=== PATIENT | male | born 1995 | race Hispanic/Latino ===

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

== ENCOUNTER 2018-05-22 15:56 | Observation (INO) | payer MEDICAID ==
[2018-05-22] MEDS ORDERED: Albuterol-Ipratrop 3 mg / 0.5 (3 ml) UD IH STA (16:46)
[2018-05-22] MEDS ORDERED: Sodium Chloride 0.9% 1,000 ML IV STA (16:46)
[2018-05-22] MEDS ORDERED: Iohexol 240 (50 ml) PO ONE (16:47)
--- NOTE | 2018-05-22 16:50 | ED PDOC ---
HPI: General Adult Time Seen by Provider: 05/22/18 16:22 Chief Complaint (Nursing): Respiratory Distress Chief Complaint (Provider): cold symptoms, abd pain History Per: Patient, Family (mother) History/Exam Limitations: no limitations Onset/Duration Of Symptoms: Days (10\) Current Symptoms Are (Timing): Still Present Additional Complaint(s): 22 y/o male brought in by mother for evaluation. Patient states he has been with cough, congestion and throat pain x 10 days. Associated subjective fevers. Patient thinks symptoms may have triggered his Crohn's; reports worsening bloody diarrhea, abdominal pain, and back pain with bowel movements. Denies headache, nausea/vomiting, palpitations, urinary symptoms, recent travel, sick contacts. Past Medical History Reviewed: Historical Data, Nursing Documentation, Vital Signs Vital Signs: Last Vital Signs Temp 98.6 F 05/22/18 16:08 Pulse 112 H 05/22/18 16:08 Resp 17 05/22/18 16:16 BP 106/58 L 05/22/18 16:08 Pulse Ox 97 05/22/18 16:16 - Medical History PMH: Asthma, Crohn's Disease Denies: Chronic Kidney Disease Other PMH: Congenital Heart disease - Surgical History Other surgeries: valvuloplastyx2 - Family History Family History: States: No Known Family Hx - Living Arrangements Living Arrangements: With Family - Immunization History Hx Tetanus Toxoid Vaccination: Yes Hx Influenza Vaccination: Yes Hx Pneumococcal Vaccination: Yes - Home Medications Home Medications: Ambulatory Orders Medication Instructions Recorded Ciprofloxacin HCl [Cipro] 500 mg PO BID #14 tab 01/03/17 Famotidine [Pepcid] 40 mg PO DAILY #14 tab 01/03/17 Lidocaine 5% [Lidoderm] 1 ea TD DAILY #30 patch 01/03/17 Vancomycin [Vancocin (Oral/Rectal 250 mg PO Q6 #28 tab 01/03/17 USE)] metroNIDAZOLE [Flagyl] 500 mg PO Q8 #21 tab 01/03/17 oxyCODONE/Acetaminophen [Percocet 1 tab PO Q4 PRN #10 tab 01/03/17 5/325 mg Tab] predniSONE [predniSONE Tab] 10 mg PO BID #14 tab 01/03/17 tiZANidine [Zanaflex] 4 mg PO Q8 PRN #30 tab 01/03/17 - Allergies Allergies/Adverse Reactions: Allergies Allergy/AdvReac Type Severity Reaction Status Date / Time nitrofurantoin AdvReac DIZZINESS Verified 05/02/16 09:26 [From Macrobid] nitrofurantoin AdvReac DIZZINESS Verified 05/02/16 09:26 macrocrystalline [From Macrobid] Review of Systems ROS Statement: Except As Marked, All Systems Reviewed And Found Negative Constitutional: Positive for: Chills ENT: Positive for: Nose Congestion, Throat Pain Cardiovascular: Positive for: Chest Pain Respiratory: Positive for: Cough, Shortness of Breath Gastrointestinal: Positive for: Abdominal Pain, Diarrhea Physical Exam - Reviewed Nursing Documentation Reviewed: Yes Vital Signs Reviewed: Yes - Physical Exam Appears: Positive for: Well, Non-toxic, No Acute Distress Head Exam: Positive for: ATRAUMATIC, NORMAL INSPECTION, NORMOCEPHALIC Skin: Positive for: Normal Color Eye Exam: Positive for: Normal appearance ENT: Positive for: TM Is/Are (clear bilaterally), Pharyngeal Erythema. Negative for: Tonsillar Exudate, Tonsillar Swelling Neck: Positive for: Normal, Painless ROM Cardiovascular/Chest: Positive for: Regular Rate, Rhythm Respiratory: Positive for: Wheezing (mild scattered expiratory wheezing). N egative for: Respiratory Distress Gastrointestinal/Abdominal: Positive for: Bowel Sounds, Soft, Tenderness (diffuse) Back: Positive for: Normal Inspection. Negative for: L CVA Tenderness, R CVA Tenderness Extremity: Positive for: Normal ROM Neurologic/Psych: Positive for: Alert, Oriented (x3) - Laboratory Results Result Diagrams: 05/22/18 16:45 05/22/18 16:45 - ECG O2 Sat by Pulse Oximetry: 97 - Progress ED Course And Treament: -cbc -cmp -lipase -influenza -rapid strep -mono -vbg w/ lactate -urinalysis -blood cx -cxr -ct abd/pelvis -IV NS bolus -IV toradol -duoneb Disposition - Clinical Impression Clinical Impression: Abdominal pain, Bronchitis - Disposition Disposition Time: 08:00 Condition: STABLE Forms: [facility] (Amharic) Patient Signed Over To: Wendy Oliveros Handoff Comments: pending CT, re-eval
[2018-05-22] MEDS ORDERED: Albuterol-Ipratrop 3 mg / 0.5 (3 ml) UD ONE (17:25)
[2018-05-22] MEDS ORDERED: Iohexol 240 (50 ml) ONE (17:26)
[2018-05-22 17:27] LABS: BASO % 0.1 % (0.0-2.0); HEMOGLOBIN 13.2 g/dL (12.0-18.0); LYMPH # 0.3 K/uL (1.0-4.3); LYMPH % 1.9 % (20.0-40.0); MEAN CELL VOLUME 77.2 fl (80.0-94.0); MEAN CORPUSCULAR HEMOGLOBIN 24.9 pg (27.0-31.0); MEAN CORPUSCULAR HGB CONC 32.2 g/dL (33.0-37.0); MEAN PLATELET VOLUME 9.2 fl (7.2-11.7); MONO # 0.4 K/uL (0.0-0.8); MONO % 2.8 % (0.0-10.0); NEUT % 95.2 % (50.0-75.0); PLATELET COUNT 337 K/uL (130-400); RBC 5.29 Mil/uL (4.40-5.90); RED CELL DISTRIBUTION WIDTH 16.6 % (11.5-14.5); WHITE BLOOD COUNT 15.8 K/uL (4.8-10.8)
[2018-05-22 17:28] LABS: VENOUS BLOOD GAS PCO2 45 mmHg (40-60); VENOUS BLOOD GAS PO2 59 mm/Hg (30-55); VENOUS BLOOD PH 7.42 (7.32-7.43)
[2018-05-22 17:41] LABS: URINE BILIRUBIN NEGATIVE (NEGATIVE); URINE BLOOD NEGATIVE (NEGATIVE); URINE CLARITY CLEAR (Clear); URINE COLOR YELLOW (YELLOW); URINE GLUCOSE (UA) NEG (NEGATIVE); URINE LEUKOCYTE ESTERASE NEG Leu/uL (Negative); URINE PROTEIN NEGATIVE (NEGATIVE); URINE UROBILINOGEN 0.2-1.0 mg/dL (0.2-1.0)
[2018-05-22 17:50] LABS: ALB/GLOB RATIO 1.1 (1.0-2.1); ALBUMIN 3.8 g/dL (3.5-5.0); ALT/SGPT 18 U/L (21-72); AST/SGOT 15 U/L (17-59); BLOOD UREA NITROGEN 11 mg/dl (9-20); CALCIUM 9.1 mg/dL (8.4-10.2); GFR NON-AFRICAN AMERICAN > 60; LIPASE 29 U/L (23-300)
[2018-05-22 18:14] LABS: LYMPHOCYTE 4 % (20-50); MONOCYTE 4 % (0-10); NEUTROPHIL 92 % (42-75); PLATELET ESTIMATE NORMAL (NORMAL); TOTAL CELLS COUNTED 100
[2018-05-22 18:15] LABS: ANISOCYTOSIS SLIGHT; LARGE PLATELETS PRESENT; OVALOCYTES SLIGHT; POIKILOCYTOSIS SLIGHT
[2018-05-22] MEDS ORDERED: Iohexol 300 100 ML IJ ONE (19:54)
[2018-05-22] MEDS ORDERED: Morphine 4 MG/ML VIAL ONE (21:09)
--- NOTE | 2018-05-22 21:09 | ED PDOC ---
- Laboratory Results Result Diagrams: 05/22/18 16:45 05/22/18 16:45 - ECG O2 Sat by Pulse Oximetry: 97 - Progress ED Course And Treament: MORPHINE 2 MG IV X 1 DOSE FOR UNCONTROLLED PAIN D/W LUPIS BANUELOS CALL PLACED TO GI DR. COSTA. Medical Decision Making Medical Decision Making: Time: 2027 --CT ABD/pelvis FINDINGS: LUNG BASES: The lung bases appear clear. No pleural effusions are seen. LIVER: Unremarkable. GALLBLADDER AND BILE DUCTS: The gallbladder is contracted. No radioopaque gallstones are seen. No biliary ductal dilatation is evident. PANCREAS: Unremarkable. SPLEEN: Unremarkable. ADRENAL GLANDS: Unremarkable. KIDNEYS, URETERS, AND BLADDER: The kidneys appear within normal limits. There is no hydronephrosis or hydroureter. No urinary calculi are seen. STOMACH AND BOWEL: Distended stomach containing a large amount of undigested food particles. Thick walled fluid filled duodenum and loops of jejunum as well as ileum compatible with enteritis. Thick walled fluid filled colon is noted with involvement of all segments compatible with diffuse pancolitis. APPENDIX: No evidence of acute appendicitis on CT examination. PERITONEUM: No free fluid. No free air. LYMPH NODES: No lymphadenopathy is evident. REPRODUCTIVE: Unremarkable as visualized. VASCULATURE: No evidence of abdominal aortic aneurysm. BONES: No aggressive appearing osseous lesion. No acute osseous pathology evident. MISCELLANEOUS: Infectious and inflammatory etiologies are considered. IMPRESSION: Enterocolitis as above. Infectious and inflammatory etiologies are considered. Disposition - Clinical Impression Clinical Impression: Abdominal pain, Bronchitis, Crohn's colitis - POA Present On Arrival: None - Disposition Disposition: Hospitalized as Observation Patient Disposition Time: 21:32 Condition: STABLE
[2018-05-22] MEDS ORDERED: Morphine 4 MG/ML VIAL IVP ONE (21:15)
[2018-05-22] MEDS ORDERED: Ciprofloxacin 400mg/200ml D5W 400 MG/200 ML BAG IVPB STA (21:52)
[2018-05-22] MEDS ORDERED: metroNIDAZOLE 500mg/100ml NS 100 ML IVPB STA (21:52)
[2018-05-22] MEDS ORDERED: Ciprofloxacin 400mg/200ml D5W 400 MG/200 ML BAG IVPB ONE (22:43)
[2018-05-22] MEDS ORDERED: metroNIDAZOLE 500mg/100ml NS 100 ML IVPB ONE (22:43)
[2018-05-23] MEDS: Morphine 4 MG/ML VIAL IVP PRN ×4 (01:59→20:45)
[2018-05-23] MEDS: metroNIDAZOLE 500mg/100ml NS 100 ML IVPB SCH ×3 (05:03→23:26)
[2018-05-23 06:27] LABS: BASO % 0.3 % (0.0-2.0); EOS # 0.1 K/uL (0.0-0.7); EOS % 0.7 % (0.0-4.0); HEMOGLOBIN 11.3 g/dL (12.0-18.0); LYMPH # 1.5 K/uL (1.0-4.3); MEAN CORPUSCULAR HEMOGLOBIN 24.5 pg (27.0-31.0); MEAN CORPUSCULAR HGB CONC 31.9 g/dL (33.0-37.0); MEAN PLATELET VOLUME 8.8 fl (7.2-11.7); MONO # 1.4 K/uL (0.0-0.8); MONO % 11.7 % (0.0-10.0); NEUT # 9.2 K/uL (1.8-7.0); NEUT % 75.3 % (50.0-75.0); RBC 4.61 Mil/uL (4.40-5.90); RED CELL DISTRIBUTION WIDTH 16.2 % (11.5-14.5); WHITE BLOOD COUNT 12.3 K/uL (4.8-10.8)
[2018-05-23 06:46] LABS: ALB/GLOB RATIO 0.9 (1.0-2.1); ALT/SGPT 30 U/L (21-72); AST/SGOT 14 U/L (17-59); BLOOD UREA NITROGEN 10 mg/dl (9-20); CALCIUM 8.4 mg/dL (8.4-10.2); GFR NON-AFRICAN AMERICAN > 60
--- NOTE | 2018-05-23 08:37 | RAD ---
Date of service: 05/22/2018 HISTORY: Cough COMPARISON: No prior. TECHNIQUE: Chest PA and lateral FINDINGS: LINES AND TUBES: None. LUNG AND PLEURA: The lungs are hyperinflated and there is peribronchial thickening with chronic changes in both lungs. No pleural effusion or pneumothorax. HEART AND MEDIASTINUM: The heart is not enlarged. No aortic atherosclerotic calcification present. The hilar and mediastinal contours are within normal limits. SKELETAL STRUCTURES: The bony structures are within normal limits for the patient's age. VISUALIZED UPPER ABDOMEN: Normal. OTHER FINDINGS: None. IMPRESSION: No active pulmonary disease. COPD.
--- NOTE | 2018-05-23 09:33 | CP.PCM.HP ---
History of Present Illness - History of Present Illness History of Present Illness: pt admitted for crohns exacerbation after having incr in pain w/ diarrhea. bw noted. pt has been on steroids which ?? explain leukocytosis. pt seen by eber-kiana. plan to adv diet and ?? iv steroids if no relief Present on Admission - Present on Admission Any Indicators Present on Admission: No Review of Systems - Gastrointestinal Gastrointestinal: As Per HPI, Abdominal Pain, Diarrhea - Musculoskeletal Musculoskeletal: As Per HPI, Back Pain Past Patient History - Infectious Disease Hx of Infectious Diseases: None - Past Medical History & Family History Past Medical History?: Yes - Past Social History Smoking Status: Current Some Days Smoker - CARDIAC Hx Cardiac Disorders: Yes Hx Heart Murmur: Yes Other/Comment: congenital heart disease - PULMONARY Hx Respiratory Disorders: Yes Hx Asthma: Yes - NEUROLOGICAL Hx Neurological Disorder: No - HEENT Hx HEENT Problems: No - RENAL Hx Chronic Kidney Disease: No - ENDOCRINE/METABOLIC Hx Endocrine Disorders: No - HEMATOLOGICAL/ONCOLOGICAL Hx Blood Disorders: No Hx AIDS: No Hx Human Immunodeficiency Virus (HIV): No - INTEGUMENTARY Hx Dermatological Problems: Yes Other/Comment: Abscess - MUSCULOSKELETAL/RHEUMATOLOGICAL Hx Musculoskeletal Disorders: Yes Hx Falls: Yes - GASTROINTESTINAL Hx Gastrointestinal Disorders: Yes Hx Crohn's Disease: Yes - GENITOURINARY/GYNECOLOGICAL Hx Genitourinary Disorders: No - PSYCHIATRIC Hx Psychophysiologic Disorder: No Hx Substance Use: Yes (marijuana) - SURGICAL HISTORY Hx Surgeries: Yes Other/Comment: valve repair surgery - ANESTHESIA Hx Anesthesia: Yes Hx Anesthesia Reactions: No Meds Allergies/Adverse Reactions: Allergies Allergy/AdvReac Type Severity Reaction Status Date / Time nitrofurantoin AdvReac DIZZINESS Verified 05/02/16 09:26 [From Macrobid] nitrofurantoin AdvReac DIZZINESS Verified 05/02/16 09:26 macrocrystalline [From Macrobid] Physical Exam - Constitutional Appears: Well, Non-toxic, No Acute Distress - Head Exam Head Exam: ATRAUMATIC, NORMAL INSPECTION, NORMOCEPHALIC - Eye Exam Eye Exam: EOMI, Normal appearance, PERRL Pupil Exam: NORMAL ACCOMODATION, PERRL - ENT Exam ENT Exam: Mucous Membranes Moist, Normal Exam - Neck Exam Neck exam: Positive for: Normal Inspection - Respiratory Exam Respiratory Exam: Clear to Auscultation Bilateral, NORMAL BREATHING PATTERN - Cardiovascular Exam Cardiovascular Exam: REGULAR RHYTHM, RRR, +S1, +S2 - GI/Abdominal Exam GI & Abdominal Exam: Normal Bowel Sounds, Soft. absent: Tenderness - Rectal Exam Rectal Exam: NORMAL INSPECTION - Extremities Exam Extremities exam: Positive for: full ROM, normal capillary refill, normal inspection, pedal pulses present - Back Exam Back exam: NORMAL INSPECTION - Neurological Exam Neurological exam: Alert, CN II-XII Intact, Normal Gait, Oriented x3, Reflexes Normal - Psychiatric Exam Psychiatric exam: Normal Affect, Normal Mood - Skin Skin Exam: Dry, Intact, Normal Color, Warm Results - Vital Signs Recent Vital Signs: Last Vital Signs Temp 99 F 05/23/18 08:38 Pulse 67 05/23/18 08:38 Resp 20 05/23/18 08:38 BP 99/55 L 05/23/18 08:38 Pulse Ox 98 05/23/18 08:38 - Labs Result Diagrams: 05/23/18 05:45 05/23/18 05:45 Labs: Laboratory Results - last 24 hr 05/22/18 05/22/18 05/22/18 14:45 16:45 16:45 WBC 15.8 H RBC 5.29 Hgb 13.2 Hct 40.9 MCV 77.2 L D MCH 24.9 L MCHC 32.2 L RDW 16.6 H Plt Count 337 MPV 9.2 Neut % (Auto) 95.2 H Lymph % (Auto) 1.[address] [place] % (Auto) 2.8 Eos % (Auto) 0.0 Baso % (Auto) 0.1 Neut # (Auto) 15.0 H Lymph # (Auto) 0.[address] [place] # (Auto) 0.4 Eos # (Auto) 0.0 Baso # (Auto) 0.0 Neutrophils % (Manual) 92 H Lymphocytes % (Manual) 4 L Monocytes % (Manual) 4 Platelet Estimate Normal Large Platelets Present Poikilocytosis (manual Slight Anisocytosis (manual) Slight Ovalocytes Slight pO2 VBG pH VBG pCO2 VBG HCO3 VBG Total CO2 VBG O2 Sat (Calc) VBG Base Excess VBG Potassium Glucose Lactate FiO2 Sodium 140 Potassium 3.9 Chloride 104 Carbon Dioxide 25 Anion Gap 15 BUN 11 Creatinine 0.8 Est GFR ( Amer) > 60 Est GFR (Non-Af Amer) > 60 Random Glucose 119 H Calcium 9.1 Phosphorus Magnesium Total Bilirubin 0.2 AST 15 L ALT 18 L D Alkaline Phosphatase 78 Total Protein 7.5 Albumin 3.8 Globulin 3.7 Albumin/Globulin Ratio 1.1 Lipase 29 Venous Blood Potassium Urine Color Yellow Urine Clarity Clear Urine pH 7.0 Ur Specific [place] 1.016 Urine Protein Negative Urine Glucose (UA) Neg Urine Ketones Negative Urine Blood Negative Urine Nitrate Negative Urine Bilirubin Negative Urine Urobilinogen 0.2-1.0 Ur Leukocyte Esterase Neg Urine RBC (Auto) 1 Urine Microscopic WBC < [address] [place] Assay Influenza Typ A,B (EIA) Grp A Beta Strep Ag 05/22/18 05/22/18 05/22/18 16:45 16:45 16:45 WBC RBC Hgb Hct MCV MCH MCHC RDW Plt Count MPV Neut % (Auto) Lymph % (Auto) [place] % (Auto) Eos % (Auto) Baso % (Auto) Neut # (Auto) Lymph # (Auto) [place] # (Auto) Eos # (Auto) Baso # (Auto) Neutrophils % (Manual) Lymphocytes % (Manual) Monocytes % (Manual) Platelet Estimate Large Platelets Poikilocytosis (manual Anisocytosis (manual) Ovalocytes pO2 VBG pH VBG pCO2 VBG HCO3 VBG Total CO2 VBG O2 Sat (Calc) VBG Base Excess VBG Potassium Glucose Lactate FiO2 Sodium Potassium Chloride Carbon Dioxide Anion Gap BUN Creatinine Est GFR ( Amer) Est GFR (Non-Af Amer) Random Glucose Calcium Phosphorus Magnesium Total Bilirubin AST ALT Alkaline Phosphatase Total Protein Albumin Globulin Albumin/Globulin Ratio Lipase Venous Blood Potassium Urine Color Urine Clarity Urine pH Ur Specific [place] Urine Protein Urine Glucose (UA) Urine Ketones Urine Blood Urine Nitrate Urine Bilirubin Urine Urobilinogen Ur Leukocyte Esterase Urine RBC (Auto) Urine Microscopic WBC Infectious [place] Assay Negative Influenza Typ A,B (EIA) Negative for flu a/b Grp A Beta Strep Ag Negative 05/22/18 05/23/18 05/23/18 17:17 05:45 05:45 WBC 12.3 H RBC 4.61 Hgb 11.3 L Hct 35.5 MCV 77.0 L MCH 24.5 L MCHC 31.9 L RDW 16.2 H Plt Count 303 MPV 8.8 Neut % (Auto) 75.3 H Lymph % (Auto) 12.[address] [place] % (Auto) 11.7 H Eos % (Auto) 0.7 Baso % (Auto) 0.3 Neut # (Auto) 9.2 H Lymph # (Auto) 1.5 [place] # (Auto) 1.4 H Eos # (Auto) 0.1 Baso # (Auto) 0.0 Neutrophils % (Manual) Lymphocytes % (Manual) Monocytes % (Manual) Platelet Estimate Large Platelets Poikilocytosis (manual Anisocytosis (manual) Ovalocytes pO2 59 H VBG pH 7.42 VBG pCO2 45 VBG HCO3 27.9 VBG Total CO2 30.6 H VBG O2 Sat (Calc) 95.0 H VBG Base Excess 4.0 H VBG Potassium 3.7 Glucose 110 Lactate 2.1 FiO2 21.0 Sodium 138.0 139 Potassium 3.3 L Chloride 105.0 104 Carbon Dioxide 27 Anion Gap 11 BUN 10 Creatinine 0.8 Est GFR ( Amer) > 60 Est GFR (Non-Af Amer) > 60 Random Glucose 93 Calcium 8.4 Phosphorus 3.3 Magnesium 1.9 Total Bilirubin 0.1 L AST 14 L ALT 30 Alkaline Phosphatase 60 Total Protein 6.2 L Albumin 3.0 L D Globulin 3.2 Albumin/Globulin Ratio 0.9 L Lipase Venous Blood Potassium 3.7 Urine Color Urine Clarity Urine pH Ur Specific [place] Urine Protein Urine Glucose (UA) Urine Ketones Urine Blood Urine Nitrate Urine Bilirubin Urine Urobilinogen Ur Leukocyte Esterase Urine RBC (Auto) Urine Microscopic WBC Infectious [place] Assay Influenza Typ A,B (EIA) Grp A Beta Strep Ag Assessment & Plan (1) Crohn's colitis Assessment and Plan: pain control gi po as jackei ivf cipro/flgayl sotol c/s Status: Acute (2) DVT prophylaxis Assessment and Plan: scd and ae hose ambulation Status: Acute Decision To Admit - Pt Status Changed To: Hospital Disposition Of: Observation - . Bed Request Type: Med/Surg Admitting Physician: Leobardo Stein
[2018-05-23] MEDS: Ciprofloxacin 400mg/200ml D5W 400 MG/200 ML BAG IVPB SCH ×2 (10:56→20:46)
[2018-05-23] MEDS ORDERED: methylPREDNISolone 40 MG in Sodium Chloride 0.9% 50 ML IVPB SCH (11:30)
--- NOTE | 2018-05-23 11:52 | CT ---
Date of service: 05/22/2018 PROCEDURE: CT Abdomen and Pelvis with contrast HISTORY: diffuse abd/back pain, bloody diarrhea h/o Crohns COMPARISON: 12/28/2016 and 01/01/2017. Serial CT scans abdomen and pelvis. TECHNIQUE: Intravenous contrast dose: 90.0 cc Omnipaque 300. Radiation dose: Total exam DLP = 281.50 mGy-cm. This CT exam was performed using one or more of the following dose reduction techniques: Automated exposure control, adjustment of the mA and/or kV according to patient size, and/or use of iterative reconstruction technique. FINDINGS: LOWER THORAX: Unremarkable. LIVER: Unremarkable. No gross lesion or ductal dilatation. GALLBLADDER AND BILE DUCTS: Unremarkable. PANCREAS: Unremarkable. No gross lesion or ductal dilatation. SPLEEN: Unremarkable. ADRENALS: Unremarkable. No mass. KIDNEYS AND URETERS: Unremarkable. No hydronephrosis. No solid mass. VASCULATURE: Unremarkable. No aortic aneurysm. No atherosclerotic calcification or mural plaque present. BOWEL: Acute colitis primarily involving the left hemicolon and extending from the splenic flexure to the rectum. Similar degree and distribution of findings compared to the prior study. This appears to be uncomplicated colitis without evidence of perforation, associated drainable collection. Markedly distended stomach filled with fluid and debris. No evidence of outflow obstruction. APPENDIX: No evidence of acute appendicitis. PERITONEUM: Unremarkable. No free fluid. No free air. LYMPH NODES: Unremarkable. No enlarged lymph nodes. BLADDER: Unremarkable. REPRODUCTIVE: Unremarkable. BONES: No acute fracture. OTHER FINDINGS: None. IMPRESSION: Acute colitis primarily affecting the descending colon, sigmoid and rectum. Similar findings with respect to anatomic involvement and severity noted on prior studies. Concordant results (preliminary interpretation) provided by [facility]. Procedure Completed: 20:06. Preliminary Report: Dictated and Authenticated: 20:28. Final Interpretation: 11:48. May 23, 2018
[2018-05-23] MEDS: MethylPREDNISolone 40 mg Vial IVP SCH (12:59)
--- NOTE | 2018-05-23 16:42 | CARD ---
APPROVED REPORT Date of service: 05/22/2018 EKG Measurement Heart [id number] ID [id number] <Conclusion> Sinus tachycardia Rightward axis Borderline ECG
[2018-05-23] MEDS: Potassium Chloride 20 mEq ER Tab PO SCH (19:46)
[2018-05-23 23:37] VITALS: BP 101/60; PULSE 91; RESP 20; TEMP 97.7; O2SAT 97
[2018-05-24] MEDS: MethylPREDNISolone 40 mg Vial IVP SCH (00:37)
[2018-05-24] MEDS: metroNIDAZOLE 500mg/100ml NS 100 ML IVPB SCH (05:15)
[2018-05-24] MEDS: Morphine 4 MG/ML VIAL IVP PRN (05:21)
[2018-05-24 06:32] LABS: HEMOGLOBIN 11.9 g/dL (12.0-18.0); MEAN CELL VOLUME 78.4 fl (80.0-94.0); MEAN CORPUSCULAR HEMOGLOBIN 24.5 pg (27.0-31.0); MEAN CORPUSCULAR HGB CONC 31.2 g/dL (33.0-37.0); RBC 4.85 Mil/uL (4.40-5.90); RED CELL DISTRIBUTION WIDTH 16.4 % (11.5-14.5); WHITE BLOOD COUNT 16.8 K/uL (4.8-10.8)
[2018-05-24 06:42] LABS: BLOOD UREA NITROGEN 12 mg/dl (9-20); CALCIUM 8.8 mg/dL (8.4-10.2); GFR NON-AFRICAN AMERICAN > 60
--- NOTE | 2018-05-24 08:27 | CP.PCM.PN ---
Subjective - Date & Time of Evaluation Date of Evaluation: 05/24/18 Time of Evaluation: 08:26 - Subjective Subjective: pt doign well. less pain. nof/c, n/v/d. bw noted. gi consult appriciated. jackie po Objective - Vital Signs/Intake and Output Vital Signs (last 24 hours): Temp Pulse Resp BP Pulse Ox 97.7 F 91 H 20 101/60 97 05/23/18 23:37 05/23/18 23:37 05/23/18 23:37 05/23/18 23:37 05/23/18 23:37 - Medications Medications: Current Medications Acetaminophen (Tylenol 325mg Tab) 650 mg PO Q4 PRN PRN Reason: Pain, Mild (1-3) Dicyclomine HCl (Bentyl) 20 mg PO QID KARTHIK Last Admin: 05/23/18 23:26 Dose: 20 mg Ciprofloxacin (Cipro 400mg/200ml Dsw) 400 mg in 200 mls @ 200 mls/hr IVPB Q12 KARTHIK; Protocol Last Admin: 05/23/18 20:46 Dose: 200 mls/hr Metronidazole (Flagyl 500mg/100ml Ns) 100 mls @ 100 mls/hr IVPB Q8H KARTHIK; Protocol Last Admin: 05/24/18 05:15 Dose: 100 mls/hr Ketorolac Tromethamine (Toradol) 30 mg IVP Q6 PRN PRN Reason: Pain, moderate (4-7) Methylprednisolone (Solu-Medrol) 40 mg IVP Q12H KARTHIK Last Admin: 05/24/18 00:37 Dose: Not Given Morphine Sulfate (Morphine) 2 mg IVP Q4 PRN PRN Reason: Pain, severe (8-10) Last Admin: 05/24/18 05:21 Dose: 2 mg Potassium Chloride (K-Dur 20 Meq Er Tab) 20 meq PO BID KARTHIK Last Admin: 05/23/18 19:46 Dose: 20 meq - Labs Labs: 05/24/18 05:55 05/24/18 05:55 - Constitutional Appears: Well, Non-toxic, No Acute Distress - Head Exam Head Exam: ATRAUMATIC, NORMAL INSPECTION, NORMOCEPHALIC - Eye Exam Eye Exam: EOMI, Normal appearance, PERRL Pupil Exam: NORMAL ACCOMODATION, PERRL - ENT Exam ENT Exam: Mucous Membranes Moist, Normal Exam - Neck Exam Neck Exam: Full ROM, Normal Inspection. absent: Lymphadenopathy - Respiratory Exam Respiratory Exam: Clear to Ausculation Bilateral, NORMAL BREATHING PATTERN - Cardiovascular Exam Cardiovascular Exam: REGULAR RHYTHM, RRR, +S1, +S2. absent: Murmur - GI/Abdominal Exam GI & Abdominal Exam: Soft, Normal Bowel Sounds. absent: Tenderness - Extremities Exam Extremities Exam: Full ROM, Normal Capillary Refill, Normal Inspection. absent: Joint Swelling, Pedal Edema - Back Exam Back Exam: NORMAL INSPECTION - Neurological Exam Neurological Exam: Alert, Awake, CN II-XII Intact, Normal Gait, Oriented x3 - Psychiatric Exam Psychiatric exam: Normal Affect, Normal Mood - Skin Skin Exam: Dry, Intact, Normal Color, Warm Assessment and Plan (1) Crohn's colitis Status: Acute (2) DVT prophylaxis Status: Acute - Assessment and Plan (Free Text) Assessment: (1) Crohn's colitis Assessment and Plan: pain control gi po as jackie ivf cipro/flgayl sotol c/s adv diet Status: Acute (2) DVT prophylaxis Assessment and Plan: scd and ae hose ambulation Status: Acute
[2018-05-24] MEDS: Potassium Chloride 20 mEq ER Tab PO SCH (08:39)
[2018-05-24] MEDS: Ciprofloxacin 400mg/200ml D5W 400 MG/200 ML BAG IVPB SCH (08:40)
--- NOTE | 2018-05-24 08:46 | CON ---
DATE: 05/23/2018 REFERRING PHYSICIAN: Leobardo Welch. REASON FOR CONSULTATION: Crohn disease and diarrhea. HISTORY OF PRESENT ILLNESS: This is a pleasant 22-year-old man with a history of Crohn's for many years and essentially has now been on steroids chronically for the treatment, was on and off diarrhea. No pain. Some nausea and vomiting. Tolerating liquid diet. No fever. No chills. Otherwise, lying in bed comfortable, in no apparent distress. PAST MEDICAL HISTORY: As above. PAST SURGICAL HISTORY: As above. MEDICATIONS: Have been reviewed. REVIEW OF SYSTEMS: All other systems have been reviewed and negative apart from the HPI. PHYSICAL EXAMINATION: LUNGS: Coarse breath sounds bilaterally. HEART: S1 and S2. Regular rate and rhythm. No S3. ABDOMEN: Soft, nontender. Bowel sounds present. . SKIN: Warm, dry, and intact. NEUROLOGIC: A and O x3. LABORATORY DATA: Labs and radiology have been reviewed. WBC is 7.3, hemoglobin 11.3 . ASSESSMENT AND PLAN: A 22-year-old male with Crohn's. increase intravenous steroids for now and then long taper. We will plan for outpatient workup to resume . Thank you for the consult. Jayy Irizarry MD/ PhD cc: Dr. Britni Beckford
--- NOTE | 2018-05-24 09:04 | CP.PCM.PN ---
Subjective - Date & Time of Evaluation Date of Evaluation: 05/24/18 Time of Evaluation: 09:03 - Subjective Subjective: no overnight events Objective - Vital Signs/Intake and Output Vital Signs (last 24 hours): Temp Pulse Resp BP Pulse Ox 97.7 F 91 H 20 101/60 97 05/23/18 23:37 05/23/18 23:37 05/23/18 23:37 05/23/18 23:37 05/23/18 23:37 - Medications Medications: Current Medications Acetaminophen (Tylenol 325mg Tab) 650 mg PO Q4 PRN PRN Reason: Pain, Mild (1-3) Dicyclomine HCl (Bentyl) 20 mg PO QID KARTHIK Last Admin: 05/24/18 08:39 Dose: 20 mg Ciprofloxacin (Cipro 400mg/200ml Dsw) 400 mg in 200 mls @ 200 mls/hr IVPB Q12 KARTHIK; Protocol Last Admin: 05/24/18 08:40 Dose: 200 mls/hr Metronidazole (Flagyl 500mg/100ml Ns) 100 mls @ 100 mls/hr IVPB Q8H KARTHIK; Protocol Last Admin: 05/24/18 05:15 Dose: 100 mls/hr Ketorolac Tromethamine (Toradol) 30 mg IVP Q6 PRN PRN Reason: Pain, moderate (4-7) Last Admin: 05/24/18 08:46 Dose: 30 mg Methylprednisolone (Solu-Medrol) 40 mg IVP Q12H KARTHIK Last Admin: 05/24/18 00:37 Dose: Not Given Morphine Sulfate (Morphine) 2 mg IVP Q4 PRN PRN Reason: Pain, severe (8-10) Last Admin: 05/24/18 05:21 Dose: 2 mg Potassium Chloride (K-Dur 20 Meq Er Tab) 20 meq PO BID KARTHIK Last Admin: 05/24/18 08:39 Dose: 20 meq - Labs Labs: 05/24/18 05:55 05/24/18 05:55 - Neck Exam Neck Exam: Normal Inspection - Respiratory Exam Respiratory Exam: Clear to Ausculation Bilateral, NORMAL BREATHING PATTERN - Cardiovascular Exam Cardiovascular Exam: REGULAR RHYTHM - GI/Abdominal Exam GI & Abdominal Exam: Soft, Normal Bowel Sounds Assessment and Plan - Assessment and Plan (Free Text) Assessment: 22 yo male with crohns disease iv solumedrol, taper to po ADAT dc planing and plan for biologic as outpatient
== END 2018-05-24 14:50 | disposition home or self-care (01) ==
LOC: H.ER 15:56 → H.ERHOLD 21:36 → H.MEDSURG1 05-23 00:36
PROVIDERS: ADMIT Family Medicine; ATTEND Family Medicine
DX: K50.10 Crohn's disease of large intestine without complications (principal); J45.909 Unspecified asthma, uncomplicated; F17.200 Nicotine dependence, unspecified, uncomplicated
CPT/HCPCS: 36415; 71046; 74177; 80048; 80053; 81003; 82803; 83690; 83735; 84100; 85025; 85027; 86308; 87040; 87045; 87070; 87086; 87177; 87209; 87230; 87430; 87804; 93005; 96374; 99284; G0378; J0744; J1885; J2270; J2920; J7030; Q9966; Q9967